=== PATIENT | female | born 1935 | race Caucasian/White ===

== ENCOUNTER → 2017-01-10 10:00 | Outpatient (CLI) | payer MEDICARE, OTHER ==
[2016-06-12 11:30] VITALS: BMI 27.5
[~2017-01-10 10:00] MED LIST: ALTOPREV40 MG PO; COREG6.25 MG PO; HYDROCODONE-APA1 TAB PO; KLONOPIN0.5 MG PO; LINZESS290 MCG PO; NEXIUM40 MG PO; SYNTHROID88 MCG PO; WELLBUTRIN XL150 M1 PO
== END | disposition home or self-care (01) ==
LOC: D.MRI 01-08 11:30
DX: M25.562 Pain in left knee (principal)

== ENCOUNTER → 2017-10-02 09:50 | Outpatient (CLI) | payer MEDICARE, OTHER ==
[2016-06-12 11:30] VITALS: BMI 27.5
[~2017-10-02 09:50] MED LIST changes: +DILT-XR240 MG PO; +EVISTA60 MG PO; +LIPITOR10 MG PO; +OMEPRAZOLE40 MG PO
== END | disposition home or self-care (01) ==
LOC: D.US 09:50
DX: R10.13 Epigastric pain (principal)

== ENCOUNTER → 2017-10-09 12:30 | Outpatient (CLI) | payer MEDICARE, OTHER ==
[2016-06-12 11:30] VITALS: BMI 27.5
== END | disposition home or self-care (01) ==
LOC: D.RAD 12:30
DX: R13.10 Dysphagia, unspecified (principal)

== ENCOUNTER 2017-11-05 06:08 | Day surgery (SDC) | payer MEDICARE, OTHER ==
[~2017-11-05] VITALS: Ht 167.6 cm; Wt 76.2 kg
--- NOTE | ~2017-11-05 | OP ---
PATIENT NAME: STEPHANIE MALAVE MEDICAL RECORD: [id number] :37 LOCATION:D.OPS ADMISSION DATE: SURGEON: OSIEL ORELLANA MD DATE OF OPERATION: 11/05/2017 PREOPERATIVE DIAGNOSES: 1. Gallstones. 2. Hypertension. 3. Hypercholesterolemia. 4. Thyroid disease. POSTOPERATIVE DIAGNOSES: 1. Hypercholesterolemia. 2. Thyroid disease. PROCEDURE: Laparoscopic cholecystectomy. SURGEON: Osiel Orellana MD REPORT OF PROCEDURE: The patient's abdomen was prepped and draped in sterile fashion. A cutdown was made on the superior aspect of the umbilicus. Vicryls #0 were placed in the fascia bilaterally and the fascia was incised with #15 blade. I then bluntly entered the peritoneal cavity and placed a 12-mm Carmen port. Under direct visualization, a 5-mm trocar was placed in the epigastrium and two more 5-mm trocars were placed in the right subcostal region. The gallbladder was elevated and there was no sign of any inflammatory changes. The patient had multiple small stones visible inside the gallbladder, especially around the neck and the infundibulum. These were all milked back into the gallbladder fossa. The cystic duct was clipped proximally and distally, and ligated in standard fashion. The cystic artery was found, clipped proximally and distally, and ligated. The gallbladder was then taken off the liver bed using electrocautery and placed in the right upper quadrant. Any bleeding from the liver bed was then treated with electrocautery. We irrigated out the right upper quadrant and assured there was no further bleeding and no sign of any bile leakage. At this point, the ports and insufflation were then removed and the gallbladder was taken out through the umbilicus. The umbilical fascia was closed with interrupted #0 Vicryls times 3. The wounds were irrigated out with normal saline and infused with 10 mL of 0.25% Marcaine with epinephrine. The skin incisions were all closed with subcutaneous 5-0 Monocryl and dressed appropriately. COMPLICATIONS: None. CONDITION: Stable. ANESTHESIA: General endotracheal and local. BLOOD LOSS: Minimal. TRANSINT:[id number] Voice Confirmation ID: [id number] DOCUMENT ID: [id number] OPERATIVE REPORT [id number] ANANDASTEPHANIE Greyson OSIEL ORELLANA MD CC: DAVID BURT MD [id number] DICTATION DATE: 11/05/17 1004 TAX ADJUSTER: 11/05/17 1327 [facility] [address] [place], [facility]
[2017-11-05 06:53] LABS: HEMATOCRIT 42.8 % (36.0-48.0); HEMOGLOBIN 14.7 g/dL (12-16); MCH 30.5 pg (26.0-34.0); MCHC 34.3 g/dL (31.0-37.0); MCV 88.8 fL (80.0-100.0); MEAN PLATELET VOLUME 9.9 fL (7.4-10.4); PLATELET COUNT 255 10x3/uL (130-400); RBC 4.82 10x6/uL (4.00-5.40); RDW 13.4 % (11.5-14.5); WBC 10.6 10x3/uL (4.8-10.8)
[2017-11-05 07:25] LABS: BASOPHILS 1 % (0-2); EOSINOPHILS 3 % (0-7); LYMPHOCYTES 55 % (15-50); MONOCYTES 7 % (2-11); NEUTROPHILS 34 % (40-80)
[2017-11-05 07:26] LABS: POIKILOCYTOSIS OCC; SCHISTOCYTES OCC; TEAR DROP CELLS OCC
[2017-11-05 07:27] LABS: ANISOCYTOSIS OCC; PLATELET ESTIMATE NORMAL; ROULEAUX OCC
[2017-11-05] MEDS ORDERED: OMEPRAZOLE40 MG PO (08:25)
[2017-11-05 08:28] LABS: ANION GAP 17.1 mmol/L (8-16); CALCIUM 8.8 mg/dL (8.5-10.1); CARBON DIOXIDE 25.6 mmol/L (21.0-32.0); CREATININE - SERUM 1.1 mg/dL (0.6-1.3); POTASSIUM - SERUM 3.7 mmol/L (3.5-5.1)
[2017-11-05 08:33] VITALS: BP 132/74; Ht 167.6 cm; Wt 76.2 kg
[2017-11-05] MEDS ORDERED: HYDROCODONE-APA1 TAB PO (09:59)
== END 2017-11-05 13:35 | disposition home or self-care (01) ==
LOC: D.OPS 06:08 → D.PAN 09:00 → D.OPS 09:00
PROVIDERS: Anesthesiology
DX: K80.10 Calculus of gallbladder with chronic cholecystitis without obstruction (principal); I10 Essential (primary) hypertension; E78.00 Pure hypercholesterolemia, unspecified; E07.9 Disorder of thyroid, unspecified; Z01.812 Encounter for preprocedural laboratory examination

== ENCOUNTER → 2017-11-23 09:29 | Outpatient (CLI) | payer MEDICARE, OTHER ==
[2017-11-05 08:33] VITALS: BMI 27.1
--- NOTE | ~2017-11-23 | HEMODYNAMI ---
PATIENT:STEPHANIE MALAVE MEDICAL RECORD: [id number] : 37 LOCATION:[facility] ADMISSION DATE: 11/23/17 Generatedon:11/23/201713:13 Patient name: STEPHANIE MALAVE Patient #: [id number] SSN: D OB: 1935 Date of study: 11/23/2017 Page: Of Hemodynamic Procedure Report Patient Data Patient Demographics Procedure consent was obtained First Name: STEPHANIE Gender: Female Last Name: ANANDA : 1935 [facility] Initial: L Age: 82 year(s) Patient #: [id number] Race: Unknown Additional ID: [id number] Contact details [address]: [address] [place] [address] State: [place] City: [place] Zip code: [address] Past Medical History Allergies Allergen Reaction Date Comments Reported Other allergy 11/23/2017 Tetanus Admission Admission Data Admission Date: 11/23/2017 Admission Time: 9:29 Lab Results Lab Result Date: 11/23/2017 Lab Result Time: 10:00 Biochemistry Name Units Result Min Max BUN mg/dl 17 --(---*)-- 7 18 Creatinine mg/dl 1.1 --(--*-)-- 0.6 1.3 CBC Name Units Result Min Max Hematocrit % 41.4 -*(----)-- 42 54 Hemoglobin g/dl 14.1 --(*---)-- 13.5 17.5 Procedure Procedure Types Cath Procedure Diagnostic Procedure LHC LH w/Coronaries PCI Procedure Coronary Stent Coronary Stent Initial Procedure Description Procedure Date Procedure Date: 11/23/2017 Procedure Start Time: 13:01 Procedure End Time: 13:12 Procedure Staff Name Function Woody Mckeon MD Performing Physician Lane Collier RT Monitor Jayleen Azar RT Scrub Eber Lynn RN Nurse Procedure Data Cath Procedure Fluoroscopy Diagnostic fluoroscopy Total fluoroscopy Time: 4.2 time: 4.2 min min Diagnostic fluoroscopy Total fluoroscopy dose: 406 dose: 406 mGy mGy Contrast Material Contrast Material Type Amount (ml) Isovue 300 72 Entry Location Entry Primary Successful Side Size Upsize Upsize Entry Closure De Jesus ccessful Closure Location (Fr) 1 (Fr) 2 (Fr) Remarks Device Remarks Radial Right 6 Fr Mechanical artery Short Compression Estimated blood loss: 10 ml Diagnostic catheters Device Type Used For End Catheter Placement DIAGNOSTIC [place] 110cm 5 Procedure Fr catheter ([id number]) Procedure Complications No complications Procedure Medications Medication Administration Route Dosage 0.9% NaCl I.V. 100 ml/hr Oxygen NC 2 l/min Heparin Flush Bag added to field 2 bags (1000units/500ml NS) Lidocaine 2% added to field 20 Radial Cocktail added to field ml (Verapomil 2mg/Nitro 400mcg/Heparin 1500units) Versed 2 mg Fentanyl I.V. 100 mcg Radial Cocktail I.A. ml (Verapomil 2mg/Nitro 400mcg/Heparin 1500units) Heparin Bolus I.V. 4000 units Hemodynamics Rest HGB: 14.1 (g/dl) Heart Rate: 89 (bpm) Snapshots Pre Cath Intra NCS Post Cath Vital Signs Time Heart Resp SPO2 etCO2 NIBP (mmHg) Rhythm Pain Sedation Rate (ipm) (%) (mmHg) Status Level (bpm) 12:51:22 81 18 95 0 168/73(105) NSR 0 (11) 10(A) , No pain 12:56:06 87 15 93 0 162/75(117) NSR 0 (11) 10(A) , No pain 13:00:49 93 14 94 0 153/73(118) NSR 0 (11) 10(A) , No pain 13:05:34 106 13 89 0 146/73(105) NSR 0 (11) 10(A) , No pain 13:10:18 101 17 90 0 138/72(96) NSR 0 (11) 10(A) , No pain Medications Time Medication Route Dose Verified Delivered Reason Notes Effectiveness by by 12:50:33 0.9% NaCl I.V. 100 Eber Eber Per physician ml/hr Leah Lynn RN RN 12:50:44 Oxygen NC 2 Eber Eber Per physician l/min Leah Lynn RN RN 12:50:56 Heparin Flush added 2 Eber Eber used for Bag to bags Leah Lynn procedure (1000units/500ml field RN RN NS) 12:51:09 Lidocaine 2% added 20ml Eber Eber for local to vial Leah Lynn anesthetic RN RN 12:51:28 Radial Cocktail added ml Eber Eber used for (Verapomil to Lorigan Leah procedure 2mg/Nitro RN RN 400mcg/Heparin 1500units) 12:59:21 Versed 2 mg Eber Eber for sedation Leah Lynn RN RN 12:59:33 Fentanyl I.V. 100 Eber Eber for sedation mcg Leah Lynn RN RN 13:01:36 Radial Cocktail I.A. ml Eber Woody for (Verapomil Leah Tauth MD vasodilation 2mg/Nitro RN 400mcg/Heparin 1500units) 13:06:06 Heparin Bolus I.V. 4000 Eber Eber for units Leah Lynn anticoagulation RN under ground miner Log Time Note 12:35:21 Jayleen Counts RT(R) sent for patient. Start room use. 12:35:22 Time tracking: Regular hours 12:35:27 Plan of Care:Hemodynamics will remain stable., Cardiac rhythm will remain stable., Comfort level will be maintained., Respiratory function will remain adequate., Patient/ family verbilizes understanding of procedure., Procedure tolerated without complication., Recovers from procedure without complications.. 12:44:45 Patient received from ED to CCL 1 Alert and oriented. Tansferred to table in Supine position. 12:44:49 Warm blankets applied, and mackenzie hugger turned on for patient comfort. 12:44:49 Correct patient and procedure confirmed by team. 12:44:51 Signed procedure consent form obtained from patient. 12:44:52 ECG and BP/O2 sat monitors applied to patient. 12:44:57 H&P Date Dictated: 11/23/2017 New H&P dictated by physician.. 12:44:59 Pre-procedure instructions explained to patient. 12:44:59 Pre-op teaching completed and patient verbalized understanding. 12:45:01 Family in waiting room. 12:45:03 Patient NPO since Midnight. 12:45:21 Patient allergic to Other allergyTetanus 12:45:23 Is the patient allergic to Iodine/contrast media? No. 12:50:19 Is patient on blood thinner?Yes 12:50:22 ACC The patient was administered the following blood thiners within the last 24 hours: ACCPlavix 12:50:24 Vital chart was started 12:50:33 0.9% NaCl 100 ml/hr I.V. was administered by Eber Lynn RN; Per physician; 12:50:44 Oxygen 2 l/min NC was administered by Eber Lynn RN; Per physician; 12:50:56 Heparin Flush Bag (1000units/500ml NS) 2 bags added to field was administered by Eber Lynn RN; used for procedure; 12:51:09 Lidocaine 2% 20ml vial added to field was administered by Eber Lynn RN; for local anesthetic; 12:51:28 Radial Cocktail (Verapomil 2mg/Nitro 400mcg/Heparin 1500units) ml added to field was administered by Eber Lynn RN; used for procedure; 12:55:51 Baseline sample Acquired. 12:55:55 Rhythm: sinus rhythm 12:55:57 Full Disclosure recording started 12:56:02 Patient diabetic? No. 12:56:07 Previous problem with sedation/anesthesia? No ? 12:56:08 Snore? Yes 12:56:09 Sleep apnea? No 12:56:10 Deviated septum? No 12:56:11 Opens mouth fully? Yes 12:56:12 Sticks out tongue? Yes 12:56:14 Airway obstruction? No ? 12:56:17 Dentures? Yes out 12:56:22 Modified Tariq's test Ulnar < 7 seconds 12:56:24 Patient pain scale 0/10 ?. 12:56:29 IV patent on arrival in right antecubital with 0.9% NaCl at [facility]. 12:57:34 Lab Result : BUN 17 mg/dl 12:57:34 Lab Result : Creatinine 1.1 mg/dl 12:57:34 Lab Result : Hemoglobin 14.1 g/dl 12:57:34 Lab Result : Hematocrit 41.4 % 12:57:37 Lab results completed and on chart. 12:57:40 Right Radial & Right Groin area was prepped with chlora-prep and draped in sterile fashion 12:57:46 Alarms reviewed by R. N. 12:57:46 Sharps counted by scrub and verified by R.N. 12:57:49 Use device set Radial Dx or PCI 12:57:51 ACIST Syringe (37211) opened to sterile field. 12:57:52 Medline Cath Pack ([id number]) opened to sterile field. 12:57:53 ACIST Hand Control (58298) opened to sterile field. 12:57:53 ACIST Manifold (67942) opened to sterile field. 12:57:54 Tegaderm 4 x 4 (1626W) opened to sterile field. 12:57:54 MBrace Wrist Support ([id number]) opened to sterile field. 12:57:56 Bag Decanter (2002S) opened to sterile field. 12:57:57 DIAGNOSTIC WIRE .035 260cm J wire (748144) opened to sterile field. 12:57:58 SHEATH 6FR Slender ([id number]) opened to sterile field. 12:58:07 Physician arrived 12:58:07 --------ALL STOP TIME OUT------ 12:58:08 Final Timeout: patient, procedure, and site verified with staff and physician. All members of the team are in agreement. 12:58:09 Right Radial & Right Groin site verified by team. 12:58:11 Physical assessment completed. ASA score P 2 - A patient with mild systemic disease as per Woody Mckeon MD. 12:58:14 Sedation plan: IV Moderate Sedation Medication:Versed, Fentanyl 12:59:21 Versed 2 mg was administered by Eber Lynn RN; for sedation; 12:59:33 Fentanyl 100 mcg I.V. was administered by Eber Lynn RN; for sedation; 13:01:20 Procedure started. 13:01:24 Local anesthetic to right radial artery with Lidocaine 2% by Woody Mckeon MD.INITIAL ACCESS ONLY 13:01:30 A 6 Fr Short sheath was inserted into the Right Radial artery 13:01:36 Radial Cocktail (Verapomil 2mg/Nitro 400mcg/Heparin 1500units) ml I.A. was administered by Woody Mckeon MD; for vasodilation; 13:01:41 A DIAGNOSTIC [place] 110cm 5 Fr catheter (232392) was advanced over the wire and used for Procedure. 13:01:59 Zero performed for pressure channel P1 13:02:27 LV gram done using MORRIS 13:02:30 Injector settings: Ml/sec: 5, Volume: 15, 13:02:34 EF : 60 % 13:03:18 LCA angiography performed. 13:04:24 RCA angiography performed. 13:04:43 INFLATOR Merit BasixCompak (TH8173) opened to sterile field. 13:04:50 GUIDE 6FR XBLAD 3.5 catheter ([id number]) opened to sterile field. 13:05:03 Catheter removed. 13:06:05 CHOICE PT Extra Support 182cm wire ([id number]) opened to sterile field. 13:06:06 Heparin Bolus 4000 units I.V. was administered by Eber Lynn RN; for anticoagulation; 13:06:12 6 Fr xblad guide catheter was inserted over the wire 13:06:20 whisper wire advanced. 13:08:26 Wire advanced across lesion. 13:09:32 Inflation Number: 1 A INTEGRITY RX 2.25 x 12 stent ([id number]) was prepped and advanced across the 1st Diag. The stent was deployed at 11 VIVIAN for 0:10 (min:sec). 13:09:41 Stent catheter was removed intact over wire. 13:09:42 Wire removed. 13:09:42 Guide catheter removed. 13:09:53 TR BAND Standard ([id number]) opened to sterile field. 13:10:08 Sheath removed intact; hemostasis achieved with Mechanical Compression to the Right Radial artery. 13:10:09 Procedure ended.(Physican Out) 13:10:35 Fluoroscopy time 04.20 minutes. 13:10:39 Fluoroscopy dose: 406 mGy 13:10:39 Flurop Dose total: 406 13:10:42 Contrast amount:Isovue 300 72ml. 13:10:44 Sharps counted by scrub and verified by R.N. 13:11:02 TR band inflated with 12cc of air. 13:11:04 Insertion/operative site no bleeding no hematoma. 13:11:11 Post right radial artery:stable, soft, clean and dry 13:11:15 Post Procedure Pulses reassessed and unchanged 13:11:19 Post-procedure physical assessment completed. ASA score P 2 - A patient with mild systemic disease as per Woody Mckeon MD. 13:11:22 Post procedure rhythm: unchanged. 13:11:24 Estimated blood loss: 10 ml 13:11:25 Post procedure instruction explained to patient.Patient verbalizes understanding. 13:11:25 Patient needs reinforcement of post procedure teaching. 13:11:36 Procedure type changed to Cath procedure, Diagnostic procedure, LHC, LHC w/Coronaries, PCI procedure, Coronary Stent, Coronary Stent Initial 13:12:26 Procedure and supply charges have been captured, reviewed, submitted and are correct. 13:12:29 Procedure Complication : No complications 13:12:32 Vital chart was stopped 13:12:33 See physician's report for complete and final results. 13:12:37 Report given to Pre/Post Procedure Room. 13:12:39 Patient transfered to Pre/Post Procedure Room with Stretcher. 13:12:42 Procedure ended. 13:12:42 Full Disclosure recording stopped 13:12:45 End room use (Document Last) Intervention Summary Intervention Notes Time ActionType Lesion and Equipment Action# Pressure Duration Attributes Used 13:09:32 Place stent 1st Diag INTEGRITY RX 1 11 00:10 2.25 x 12 stent ([id number]) Device Usage Item Name Manufacture Quantity Catalog Number Hospital Part Current Mini mal Lot# / Charge Number Stock Stock Serial# Code ACIST Acist 1 29734 885521 169616 521372 20 Syringe Medical (47225) Systems Inc Medline Cath Cardinal 1 [id number] 294056 62977 557309 5 Pack Health ([id number]) ACIST Hand Acist 1 16851 680851 994206 003387 5 Control Medical (81140) Systems Inc ACIST Acist 1 45551 043632 868988 537558 5 Manifold Medical (85034) Systems Inc Tegaderm 4 x 3M 1 1626W 103570 296197 587429 5 4 (1626W) MBrace Wrist Advanced 1 140-0250-00 366212 42100 530887 5 Support Vascular ([id number]) Dynamics Bag Decanter Microtek 1 2001S 497247 78249 166770 5 (2001S) Medical Inc. DIAGNOSTIC [facility] [place] 1 176240 059733 189263 980016 30 WIRE .035 260cm J wire (637143) SHEATH 6FR Terumo 1 [id number] 839794 095869 341260 40 Slender ([id number]) DIAGNOSTIC Terumo 1 40-8649 639266 058800 647491 5 [place] 110cm 5 Fr catheter (000541) INFLATOR Merit 1 [id number] 098499 542935 953329 15 [facility] Medical BasixCompak (DF5741) GUIDE 6FR Cardinal 1 [id number] 375033 449246 976776 10 XBLAD 3.5 Health catheter ([id number]) CHOICE PT [place] 1 [id number] 020183 851014 966976 5 Extra Scientific Support 182cm wire ([id number]) INTEGRITY RX Medtronic 1 [id number] 321460 190879 268077 5 [id number] 2.25 x 12 stent ([id number]) TR BAND Terumo 1 [id number] 762339 803432 008698 40 Standard ([id number]) Signature Audit [place] Stage Time Signature Unsigned Intra-Procedure 11/23/2017 Lane Collier 1:13:51 PM RT(R) Signatures Monitor : Lane Collier RT Signature : Date : Time : [place] [address] [place] [address]
--- NOTE | ~2017-11-23 | CN ---
PATIENT NAME:STEPHANIE ROTHMAN MEDICAL RECORD: [id number] : 37 LOCATION:D.CAT ADMIT DATE: ACCOUNT: [id number] CONSULTING PHYSICIAN: CHAY DELCID MD REFERRING PHYSICIAN: SHOLA CARRERA MD DATE OF CONSULTATION: 11/23/2017 ADMITTING DIAGNOSES: 1. Chest pain compatible with angina. 2. Hyperlipidemia. 3. Hypertension. HISTORY OF PRESENT ILLNESS: Mrs. Rothman has risk factors of hypertension, hyperlipidemia, family history of coronary artery disease. She has not had a history of ischemic heart disease. She had crushing chest pain of new onset this morning like a band-like sensation around her chest. It has waxed and waned. She has been improved with nitro, but it is coming back. Her EKG is with no acute ST-T abnormalities. PHYSICAL EXAMINATION: GENERAL APPEARANCE: Well-nourished, well-developed, appears stated age. Level of distress, comfortable. PSYCHIATRIC: Mental status, alert, normal affect. Orientation, oriented to time, place and person. EYES: Lids and conjunctiva, noninjected. No discharge, no pallor. ENT: Lips, teeth, gums, normal dentition. Oropharynx, no cyanosis, no pallor. NECK: Carotid arteries, bilateral normal upstroke, no bruits, no thrills. JUGULAR VEINS: No jugular venous pressure or distention. CERVICAL LYMPH NODES: Nontender, nonenlarged. THYROID: Not enlarged. Nontender. No nodules. LUNGS: Respiratory effort, unlabored. CHEST: Normal curvature. No thoracic deformity. No chest wall tenderness. Percussion, resonant. Auscultation, clear. No wheezes, no rales, no rhonchi. CARDIOVASCULAR: Precordial exam, nondisplaced. No heaves or pericardial thrills. Rate and rhythm, regular. Heart sounds, normal S1, normal S2. No S3, no gallop, no rub. Systolic murmur, not heard. Diastolic murmur, not heard. EXTREMITIES: No cyanosis, no edema. Peripheral pulses, full and equal in all extremities, except as noted. No bruits appreciated. ABDOMEN: Soft, nondistended. Normal aorta. No bruit. Nontender. No masses. Liver, nontender, no hepatomegaly. Spleen, nontender, no splenomegaly. MUSCULOSKELETAL: No joint tenderness. No joint swelling. No erythema. NEUROLOGICAL: Normal gait, normal strength, normal tone. SKIN: Warm and dry. REVIEW OF SYSTEMS: The patient reports easy bruising but reports no swollen glands. The patient reports no fever, no night sweats, no significant weight gain, no significant weight loss. No significant exercise tolerance. The patient reports no dry eyes, no irritation, no vision change. Patient reports no difficulty hearing and no ear pain. Patient reports no frequent nose bleeds or nose and sinus problems. Patient reports on arm pain on exertion. No shortness of breath while lying down. No history of heart murmur. Patient reports no cough, no wheezing or coughing up blood. Patient reports no abdominal pain, no vomiting. Normal appetite. No diarrhea and not vomiting blood. No nausea and no constipation. Patient reports no incontinence. No difficulty urinating. No hematuria. No increased frequency. Patient reports CONSULT REPORT [id number] CHRISTENJAVIERSTEPHANIE Rubi no muscle aches. No weakness, no arthralgias, no back pain. No swelling of the extremities. Patient reports no abnormal mole, no jaundice, no rashes. Reports no loss of consciousness. No weakness and no numbness. No seizures, dizziness, or headaches. The patient reports no depression, no sleep disturbance, feeling safe in a relationship and no alcohol abuse. Patient reports on fatigue. Reports no runny nose or sinus pressure. No itching, no hives, and no frequent sneezing. OVERALL IMPRESSION: Acute onset of chest pain compatible with angina, most likely she has hemodynamically significant coronary artery disease causing this. We will proceed with coronary angiography. Further care depends upon findings of the angiography. TRANSINT:[id number] Voice Confirmation ID: [id number] DOCUMENT ID: [id number] CHAY DELCID MD at 1148 CC: [id number] DICTATION DATE: 11/23/17 1047 BANANA RIPENING ROOM SUPERVISOR: 11/23/17 1130 DEP CLI 11/23/17 [place] [id number]
--- NOTE | ~2017-11-23 | OP ---
PATIENT NAME: STEPHANIE MALAVE MEDICAL RECORD: [id number] :37 LOCATION:D.CAT ADMISSION DATE: SURGEON: CHAY DELCID MD DATE OF OPERATION: 11/23/2017 PROCEDURES: 1. PTCA and stent left anterior descending diagonal. 2. Left heart catheterization. 3. Selective coronary angiography. 4. Left ventriculogram. INDICATION: Angina and coronary artery disease. PROCEDURE IN DETAIL: After informed consent was obtained and after detailed explanation of risks, benefits as well as alternative therapies, the patient elected to proceed with angiogram and angioplasty. The right radial area was prepped and draped in normal sterile fashion. The right radial artery was cannulated via modified Seldinger technique with placement of 6-Mongolian sheath. All catheters exchanged through this sheath. FINDINGS: The left ventriculogram was performed in standard 30-degree MORRIS view, reveals good cardiac wall motion throughout all segments. Overall ejection fraction estimated at 60%. SELECTIVE CORONARY ANGIOGRAPHY: 1. Left main showed no significant angiographic disease. 2. Left anterior descending has a diagonal with 95% stenosis. Otherwise, the LAD has mild irregularities, but no flow-limiting stenosis. 3. The left circumflex shows mild irregularities, but no flow-limiting stenosis. 4. Right coronary has gyxa-ll-vyxhrvro irregularities. PTCA AND STENT OF THE LEFT ANTERIOR DESCENDING DIAGONAL: Stent used is a 2.25 x 12 mm Integrity. Result was 0% residual stenosis. OVERALL IMPRESSION: Successful PTCA and stent of the LAD diagonal going from 95% initial stenosis to 0% residual. TRANSINT:[id number] Voice Confirmation ID: [id number] DOCUMENT ID: [id number] CHAY DECLID MD at 1153 CC: [id number] DICTATION DATE: 12/08/17 1025 CLAIM REP: 12/08/17 1133 DEP CLI 11/23/17 [place] [id number]
[~2017-11-23 09:29] MED LIST changes: +BAYER CHEWABLE81 MG PO; +PLAVIX75 MG PO
[2017-11-23 10:15] LABS: BASOPHILS 0.1 % (0-2); EOSINOPHILS 2.8 % (0-7); HEMATOCRIT 41.4 % (36.0-48.0); HEMOGLOBIN 14.1 g/dL (12-16); IMMATURE GRANULOCYTES 0.2 % (0-5); LYMPHOCYTES 26.3 % (15-50); MCH 30.1 pg (26.0-34.0); MCHC 34.1 g/dL (31.0-37.0); MCV 88.3 fL (80.0-100.0); MEAN PLATELET VOLUME 10.5 fL (7.4-10.4); MONOCYTES 5.7 % (2-11); NEUTROPHILS 64.9 % (40-80); PLATELET COUNT 258 10x3/uL (130-400); RBC 4.69 10x6/uL (4.00-5.40); RDW 12.9 % (11.5-14.5); WBC 13.6 10x3/uL (4.8-10.8)
[2017-11-23 10:19] LABS: ALBUMIN 3.7 g/dL (3.4-5.0); ALKALINE PHOSPHATASE 87 U/L (46-116); ALT (SGPT) 30 U/L (10-68); BILIRUBIN - TOTAL 0.28 mg/dL (0.2-1.3); CALC OSMOLALITY 281 mosm/kg (275-300); CALCIUM 8.7 mg/dL (8.5-10.1); CARBON DIOXIDE 25.2 mmol/L (21.0-32.0); CHLORIDE - SERUM 105 mmol/L (98-107); CREATININE - SERUM 1.1 mg/dL (0.6-1.3); GLUCOSE 135 mg/dL (74-106); POTASSIUM - SERUM 3.9 mmol/L (3.5-5.1); SODIUM 139 mmol/L (136-145); UREA NITROGEN 17 mg/dL (7-18); eGFR NON AFRICAN AMERICAN 50 mL/min (90-120)
[2017-11-23 10:30] LABS: CREATINE KINASE 42 UL (21-215); LIPASE 161 U/L (73-393); PRO BNP 36 pg/mL (0-450)
[2017-11-23 10:36] LABS: TROPONIN-I < 0.017 ng/mL (0.000-0.060)
== END | disposition home or self-care (01) ==
LOC: D.ER 09:29 → D.CATH 09:29 → EDSTATUS 12:00
PROVIDERS: Family Medicine
DX: I25.119 Atherosclerotic heart disease of native coronary artery with unspecified angina pectoris (principal); E78.5 Hyperlipidemia, unspecified; I10 Essential (primary) hypertension; Z01.812 Encounter for preprocedural laboratory examination

== ENCOUNTER 2018-10-06 10:33 | Emergency (ER) | payer MEDICARE, OTHER ==
[~2018-10-06] VITALS: Ht 165.1 cm; Wt 67.7 kg
[2018-10-06 10:36] VITALS: Ht 165.1 cm; Wt 67.7 kg
[2018-10-06 12:10] LABS: BASOPHILS 0.2 % (0-2); HEMOGLOBIN 15.5 g/dL (12-16); IMMATURE GRANULOCYTES 0.1 % (0-5); LYMPHOCYTES 34.2 % (15-50); MCHC 34.4 g/dL (31.0-37.0); MCV 87.2 fL (80.0-100.0); MEAN PLATELET VOLUME 10.8 fL (7.4-10.4); NEUTROPHILS 58.5 % (40-80); PLATELET COUNT 245 10x3/uL (130-400); RBC 5.16 10x6/uL (4.00-5.40); RDW 13.6 % (11.5-14.5); WBC 9.4 10x3/uL (4.8-10.8)
[2018-10-06 12:15] LABS: ALBUMIN 3.9 g/dL (3.4-5.0); ALKALINE PHOSPHATASE 98 U/L (46-116); ALT (SGPT) 22 U/L (10-68); BILIRUBIN - TOTAL 0.52 mg/dL (0.2-1.3); CALC OSMOLALITY 273 mosm/kg (275-300); CALCIUM 9.3 mg/dL (8.5-10.1); CARBON DIOXIDE 25.2 mmol/L (21.0-32.0); CHLORIDE - SERUM 102 mmol/L (98-107); CREATININE - SERUM 0.9 mg/dL (0.6-1.3); GLUCOSE 102 mg/dL (74-106); PROTEIN - SERUM 8.1 g/dL (6.4-8.2); SODIUM 137 mmol/L (136-145); UREA NITROGEN 13 mg/dL (7-18); eGFR NON AFRICAN AMERICAN 63 mL/min (90-120)
[2018-10-06 12:17] LABS: INR 0.95 (0.85-1.17); PROTIME 12.2 SECONDS (11.6-15.0)
[2018-10-06 12:18] LABS: POTASSIUM - SERUM 4.3 mmol/L (3.5-5.1)
[2018-10-06 12:26] LABS: AMYLASE - SERUM 42 U/L (25-115); LIPASE 150 U/L (73-393); PRO BNP 95 pg/mL (0-450); TROPONIN-I < 0.017 ng/mL (0.000-0.060)
[2018-10-06 16:32] LABS: APPEARANCE CLEAR (CLEAR); BILIRUBIN NEGATIVE (NEGATIVE); COLOR YELLOW (YELLOW); GLUCOSE NEGATIVE (NEGATIVE); KETONE NEGATIVE (NEGATIVE); NITRITE NEGATIVE (NEGATIVE); PROTEIN NEGATIVE (NEGATIVE); UROBILINOGEN NORMAL (NORMAL)
[2018-10-06 16:33] LABS: BACTERIA MODERATE /hpf (NONE SEEN); RED CELLS - URINE 0-5 /hpf (0-5); WHITE CELLS - URINE 0-5 /hpf (0-5)
[2018-10-06] MEDS ORDERED: MACROBID100 MG PO (16:44)
[2018-10-06] MEDS ORDERED: ZOFRAN4 MG PO (16:44)
[2018-10-06 17:10] VITALS: BP 124/87
== END 2018-10-06 17:11 | disposition home or self-care (01) ==
LOC: D.ER 10:33
PROVIDERS: Family Medicine
DX: K59.00 Constipation, unspecified (principal); K21.9 Gastro-esophageal reflux disease without esophagitis; R11.0 Nausea; N39.0 Urinary tract infection, site not specified

== ENCOUNTER 2018-10-10 09:15 | Emergency (ER) | payer MEDICARE, OTHER ==
[~2018-10-10] VITALS: Ht 165.1 cm; Wt 67.5 kg
[~2018-10-10 09:15] MED LIST changes: +MACROBID100 MG PO; +ZOFRAN4 MG PO
[2018-10-10 09:37] VITALS: Ht 165.1 cm; Wt 67.5 kg
[2018-10-10 10:29] LABS: APPEARANCE HAZY (CLEAR); BILIRUBIN NEGATIVE (NEGATIVE); COLOR DK YELLOW (YELLOW); GLUCOSE NEGATIVE (NEGATIVE); KETONE LARGE mg/dL (NEGATIVE); NITRITE NEGATIVE (NEGATIVE); PROTEIN TRACE mg/dL (NEGATIVE); SPECIFIC GRAVITY 1.025 (1.005-1.020); UROBILINOGEN NORMAL (NORMAL)
[2018-10-10 10:31] LABS: BACTERIA MODERATE /hpf (NONE SEEN); EPITHELIAL CELLS 0-5 /hpf (0-5); MUCUS >1+ /lpf (NONE SEEN); RED CELLS - URINE 0-5 /hpf (0-5); WHITE CELLS - URINE 0-5 /hpf (0-5)
[2018-10-10 10:37] LABS: BASOPHILS 0.4 % (0-2); EOSINOPHILS 0.4 % (0-7); HEMATOCRIT 43.1 % (36.0-48.0); HEMOGLOBIN 14.6 g/dL (12-16); IMMATURE GRANULOCYTES 0.3 % (0-5); LYMPHOCYTES 36.7 % (15-50); MCH 29.3 pg (26.0-34.0); MCHC 33.9 g/dL (31.0-37.0); MCV 86.5 fL (80.0-100.0); MEAN PLATELET VOLUME 10.3 fL (7.4-10.4); MONOCYTES 6.2 % (2-11); PLATELET COUNT 227 10x3/uL (130-400); RBC 4.98 10x6/uL (4.00-5.40); RDW 13.4 % (11.5-14.5); WBC 7.7 10x3/uL (4.8-10.8)
[2018-10-10 10:56] LABS: ALBUMIN 3.8 g/dL (3.4-5.0); ANION GAP 17.9 mmol/L (8-16); BILIRUBIN - TOTAL 0.5 mg/dL (0.2-1.3); CALCIUM 8.7 mg/dL (8.5-10.1); CARBON DIOXIDE 20.8 mmol/L (21.0-32.0); POTASSIUM - SERUM 3.7 mmol/L (3.5-5.1); PROTEIN - SERUM 7.5 g/dL (6.4-8.2)
[2018-10-10 11:10] LABS: AMYLASE - SERUM 39 U/L (25-115); LIPASE 156 U/L (73-393)
[2018-10-10] MEDS ORDERED: CARAFATE1 G PO (14:09)
[2018-10-10] MEDS ORDERED: PHENERGAN25 MG RC (14:09)
[2018-10-10 14:19] VITALS: BP 138/97
== END 2018-10-10 14:20 | disposition home or self-care (01) ==
LOC: D.ER 09:15
PROVIDERS: Family Medicine
DX: R11.10 Vomiting, unspecified (principal); K21.9 Gastro-esophageal reflux disease without esophagitis; N39.0 Urinary tract infection, site not specified; R33.9 Retention of urine, unspecified

== ENCOUNTER → 2018-11-03 10:37 | Outpatient (CLI) | payer MEDICARE, OTHER ==
[2018-10-10 09:37] VITALS: BMI 24.7
[~2018-11-03 10:37] MED LIST changes: +CARAFATE1 G PO; +PHENERGAN25 MG RC
[2018-11-03 14:11] LABS: AMYLASE - SERUM 36 U/L (25-115); LIPASE 168 U/L (73-393)
== END | disposition home or self-care (01) ==
LOC: D.NM 10:37 → D.MRI 11-09 10:00
PROVIDERS: Internal Medicine Gastroenterology
DX: R10.9 Unspecified abdominal pain (principal); R11.2 Nausea with vomiting, unspecified; K85.90 Acute pancreatitis without necrosis or infection, unspecified

== ENCOUNTER → 2018-11-09 08:27 | Outpatient (CLI) | payer MEDICARE, OTHER ==
[2018-10-10 09:37] VITALS: BMI 24.7
== END | disposition home or self-care (01) ==
LOC: D.MRI 08:27
DX: R10.9 Unspecified abdominal pain (principal); R11.2 Nausea with vomiting, unspecified; K85.90 Acute pancreatitis without necrosis or infection, unspecified

== ENCOUNTER 2019-10-20 07:46 | Inpatient (IN) | payer MEDICARE, OTHER ==
[~2019-10-20] VITALS: Ht 162.6 cm; Wt 65.0 kg
[2019-10-20] MEDS ORDERED: OMEPRAZOLE40 MG PO (08:00)
[2019-10-20 08:31] LABS: BASOPHILS 0.3 % (0-2); EOSINOPHILS 0.7 % (0-7); HEMATOCRIT 41.3 % (36.0-48.0); HEMOGLOBIN 13.7 g/dL (12-16); IMMATURE GRANULOCYTES 0.1 % (0-5); LYMPHOCYTES 43.6 % (15-50); MCH 30.2 pg (26.0-34.0); MCHC 33.2 g/dL (31.0-37.0); MEAN PLATELET VOLUME 10.4 fL (7.4-10.4); MONOCYTES 6.4 % (2-11); NEUTROPHILS 48.9 % (40-80); PLATELET COUNT 247 10x3/uL (130-400); RBC 4.54 10x6/uL (4.00-5.40); WBC 8.7 10x3/uL (4.8-10.8)
[2019-10-20 08:45] LABS: CALC OSMOLALITY 284 mosm/kg (275-300); CALCIUM 8.3 mg/dL (8.5-10.1); CARBON DIOXIDE 30.5 mmol/L (21.0-32.0); CHLORIDE - SERUM 105 mmol/L (98-107); CREATININE - SERUM 0.7 mg/dL (0.6-1.3); GLUCOSE 99 mg/dL (74-106); POTASSIUM - SERUM 3.9 mmol/L (3.5-5.1); SODIUM 141 mmol/L (136-145); UREA NITROGEN 23 mg/dL (7-18); eGFR NON AFRICAN AMERICAN 85 mL/min (90-120)
[2019-10-20 08:49] LABS: HELICOBACTER PYLORI IGG NEGATIVE (NEGATIVE)
[2019-10-20 08:49] LABS: APPEARANCE HAZY (CLEAR); BACTERIA FEW /hpf (NEGATIVE); BILIRUBIN NEGATIVE (NEGATIVE); COLOR YELLOW (YELLOW); EPITHELIAL CELLS OCC /hpf (0-5); GLUCOSE NEGATIVE (NEGATIVE); KETONE MODERATE mg/dL (NEGATIVE); MUCUS <1+ /lpf (NONE SEEN); NITRITE NEGATIVE (NEGATIVE); PROTEIN NEGATIVE (NEGATIVE); RED CELLS - URINE 0-5 /hpf (0-5); SPECIFIC GRAVITY 1.025 (1.005-1.020); UROBILINOGEN NORMAL (NORMAL); WHITE CELLS - URINE RARE /hpf (NEGATIVE)
[2019-10-20 08:54] LABS: ALBUMIN 3.4 g/dL (3.4-5.0); ALKALINE PHOSPHATASE 66 U/L (46-116); ALT (SGPT) 23 U/L (10-68); AMYLASE - SERUM 40 U/L (25-115); BILIRUBIN - TOTAL 0.56 mg/dL (0.2-1.3); LIPASE 118 U/L (73-393); PROTEIN - SERUM 6.7 g/dL (6.4-8.2); TROPONIN-I < 0.017 ng/mL (0.000-0.060)
[2019-10-20 12:24] VITALS: BP 172/92; Ht 162.6 cm; Wt 65.0 kg
--- NOTE | 2019-10-20 14:35 | NUR ---
OFF UNIT VIA WC FOR TEST.
[2019-10-20 17:40] LABS: CKMB 0.8 U/L (0.0-3.6); CREATINE KINASE 55 UL (21-215)
[2019-10-20 17:41] LABS: TROPONIN-I < 0.017 ng/mL (0.000-0.060)
--- NOTE | 2019-10-20 19:00 | NUR ---
PATIENT IS RESTING IN BED WITH EYES OPEN. NO S/S OF ACUTE DISTRESS. NO COMPLAINTS AT THIS TIME. PATIENT HAS NO IV. PATIENT HAS DENIED ANOTHER IV UNLESS NECESSARY. PATIENT IN ON TELEMETRY 127 SINUS TACH. CALL LIGHT IN PLACE. WILL CONTINUE TO MONITOR.
[2019-10-20 20:00] VITALS: BP 167/77
[2019-10-20 22:36] LABS: CREATINE KINASE 69 UL (21-215); TROPONIN-I < 0.017 ng/mL (0.000-0.060)
[2019-10-21] VITALS: BP 135/75
[2019-10-21 04:00] VITALS: BP 141/76
--- NOTE | 2019-10-21 05:38 | NUR ---
I have reviewed this patient and I concur with the Shift Assessment completed by the Licensed Practical Nurse today this shift.
[2019-10-21 07:07] LABS: BASOPHILS 0.4 % (0-2); EOSINOPHILS 1.1 % (0-7); HEMATOCRIT 37.8 % (36.0-48.0); HEMOGLOBIN 12.5 g/dL (12-16); IMMATURE GRANULOCYTES 0.1 % (0-5); LYMPHOCYTES 39.8 % (15-50); MCH 29.9 pg (26.0-34.0); MCHC 33.1 g/dL (31.0-37.0); MCV 90.4 fL (80.0-100.0); MEAN PLATELET VOLUME 10.6 fL (7.4-10.4); NEUTROPHILS 50.6 % (40-80); PLATELET COUNT 208 10x3/uL (130-400); RBC 4.18 10x6/uL (4.00-5.40); RDW 13.1 % (11.5-14.5); WBC 8.4 10x3/uL (4.8-10.8)
[2019-10-21 07:46] LABS: CALC OSMOLALITY 285 mosm/kg (275-300); CALCIUM 8.2 mg/dL (8.5-10.1); CHLORIDE - SERUM 110 mmol/L (98-107); CKMB 1.5 U/L (0.0-3.6); CREATINE KINASE 142 UL (21-215); CREATININE - SERUM 0.7 mg/dL (0.6-1.3); GLUCOSE 94 mg/dL (74-106); POTASSIUM - SERUM 3.3 mmol/L (3.5-5.1); SODIUM 143 mmol/L (136-145); TROPONIN-I < 0.017 ng/mL (0.000-0.060); UREA NITROGEN 15 mg/dL (7-18); eGFR NON AFRICAN AMERICAN 85 mL/min (90-120)
--- NOTE | 2019-10-21 07:54 | NUR ---
ALERT AND ORIENTED. LUNGS CLEAR BILATERALLY. HEART SOUNDS S1 AND S2 HEARD IN ALL GALO. BOWEL SOUNDS ACTIVE X 4. SKIN INTACT WITHOUT REDNESS. DENIES NEEDS. BED LOW. FALL PRECAUTIONS IN PLACE. CALL ALVES AND PERSONAL ITEMS IN REACH. WILL CONTINUE TO MONITOR.
[2019-10-21 10:22] VITALS: BP 132/60
--- NOTE | 2019-10-21 10:48 | NUR ---
PATIENT'S SON IN [place] ASKING TO TALK. SOON WALKED UP TO SON HE STATED "MY MOM IS IN ROOM 14. MY BROTHER HAS BEEN A NURSE FOR A LONG TIME. WE DONT WANT DR FARRAR. IF WE CAN'T GET ANOTHER DOCTOR THEN WE WANT TO LEAVE. IF WE CAN WE'LL STAY." AT WHICH POINT PATIENT CAME OUT IN [place] AND STATES "GET THIS HEART MONITOR OFF OF ME." CELESTE NOBLE AT [facility] NOTIFIED OF SITUATION AND GOING IN ROOM TO TALK TO PATIENT AND FAMILY.
--- NOTE | 2019-10-21 11:15 | NUR ---
TELEMETRY REMOVED PER PATIENT'S REQUEST AND RETURNED TO OCT AT MONITORS.
[2019-10-21] MEDS ORDERED: LINZESS290 MCG PO (12:05)
--- NOTE | 2019-10-21 13:00 | NUR ---
DRESSED AND WAITING DISCHARGE PAPERWORK. DEJA KULKARNI ACCOUNTING MACHINE OPERATOR, WORKING ON PAPERWORK. PATIENT AWARE.
--- NOTE | 2019-10-21 13:07 | MORECARE ---
CASE MANAGEMENT DISCHARGE SUMMARY PATIENT: STEPHANIE MALAVE UNIT: [id number] ADM DATE: 10/20/19 AGE: 84 : 36 SEX: F ROOM/BED: D.2214 AUTHOR: TRISHA MARIE PHYSICIAN: REFERRING PHYSICIAN: WILBUR FARRAR MD DATE OF SERVICE: 10/21/19 Discharge Plan Patient Name: STEPHANIE MALAVE [facility] [facility] 1935 Planned Disposition: Home or Self Care Anticipated Discharge Date: Discharge Date: Expected LOS: Initial Reviewer: [email or web address] Initial Review Date: 10/20/2019 Generated: 10/21/19 2:07 pm DCPIA - Discharge Planning Initial Assessment Updated by [email or web address]: Bety Ramirez on 10/21/19 1:06 pm * Is the patient Alert and Oriented? Yes * How many steps to enter\exit or inside your home? * PCP [facility] * Pharmacy [facility] [place] * Preadmission Environment Home with Family * ADLs Independent * Equipment None * List name and contact numbers for known caregivers / representatives who currently or will assist patient after discharge: MARIO MALAVE [phone] * Verbal permission to speak to the caregivers and representatives has been obtained from the patient. N/A * Community resources currently utilized None * Additional services required to return to the preadmission environment? No * Can the patient safely return to the preadmission environment? Yes * Has this patient been hospitalized within the prior 30 days at any hospital? No Patient Name: STEPHANIE MALAVE Page [id number] at 1307 All edits/amendments must be made on the electronic document DICTATION DATE: 10/21/19 1307 SANITATION LABORER: EDWARDO 10/21/19 1307 RPT#: [id number] DC DATE: STATUS: ADM IN [facility] [address] [place] [address] END OF REPORT
--- NOTE | 2019-10-21 13:41 | NUR ---
DISCHARGE EDUCATION PROVIDED BOTH WRITTEN AND VERBAL. VERBALIZED UNDERSTANDING. DENIES FURTHER QUESTIONS. NO IV TO REMOVE. PATIENT DISCHARGED HOME WITH ALL BELONGINGS WITH .
--- NOTE | 2019-10-22 18:17 | MORECARE ---
CASE MANAGEMENT DISCHARGE SUMMARY PATIENT: STEPHANIE MALAVE UNIT: [id number] ADM DATE: 10/20/19 AGE: 84 : 36 SEX: F ROOM/BED: D.2214 AUTHOR: FRANKDOC PHYSICIAN: REFERRING PHYSICIAN: WILBUR FARRAR MD DATE OF SERVICE: 10/22/19 Discharge Plan Patient Name: STEPHANIE MALAVE Facility: [facility]:[place] : 1935 Planned Disposition: Home or Self Care Anticipated Discharge Date: Discharge Date: 10/21/2019 Expected LOS: Initial Reviewer: [email or web address] Initial Review Date: 10/20/2019 Generated: 10/22/19 7:16 pm Comments DCP- Discharge Planning Updated by [email or web address]: Bety Ramirez on 10/21/19 12:[address] Patient Name: STEPHANIE MALAVE Admission Status: ER Accout number: [id number] Admission Date: 10-20-2019 : 1935 Admission Diagnosis: Attending: WILBUR FARRAR Current LOS: 1 Anticipated DC Date: Planned Disposition: Home or Self Care Primary Insurance: MEDICARE A & B Discharge Planning Comments: CM met with patient to complete initial dc planning assessment. CM educated patient on the CM role and verbal consent given by patient to complete assessment. Patient lives at home with her spouse who will be her local bulk driver home when she is discharged. At discharge patient plans to return home and feels this is a safe discharge. CM discussed availability of home health, rehab services, and medical equipment. Patient denied known discharge needs at this time. CM will continue to follow and will assist as needed with dc plans/needs. Vending Route Driver: Bety Ramirez DCPIA - Discharge Planning Initial Assessment Updated by [email or web address]: Bety Ramirez on 10/21/19 1:06 pm * Is the patient Alert and Oriented? Yes * How many steps to enter\exit or inside your home? * PCP D[facility]ORA * Pharmacy [facility] * Preadmission Environment Home with Family * ADLs Independent * Equipment None * List name and contact numbers for known caregivers / representatives who currently or will assist patient after discharge: MARIO MALAVE [phone] * Verbal permission to speak to the caregivers and representatives has been obtained from the patient. N/A * Community resources currently utilized None * Additional services required to return to the preadmission environment? No * Can the patient safely return to the preadmission environment? Yes * Has this patient been hospitalized within the prior 30 days at any hospital? No Last DP export: 10/21/19 12:07 p Patient Name: STEPHANIE MALAVE Page [id number] at 1817 All edits/amendments must be made on the electronic document DICTATION DATE: 10/22/191815 DEPLOYMENT ENGINEER: EDWARDO 10/22/191815 RPT#: [id number] DC DATE:10/21/19 STATUS: DIS IN [facility] [address] [place] [address] END OF REPORT
== END 2019-10-21 14:58 | disposition home or self-care (01) | DRG 392 ==
LOC: D.ER 07:46 → D.MS 10:11
PROVIDERS: Emergency Medicine; ADMIT Internal Medicine Nephrology; ATTEND Internal Medicine Nephrology
DX: K59.00 Constipation, unspecified (principal); K21.9 Gastro-esophageal reflux disease without esophagitis; I25.10 Atherosclerotic heart disease of native coronary artery without angina pectoris; I10 Essential (primary) hypertension; F32.9 Major depressive disorder, single episode, unspecified; E03.9 Hypothyroidism, unspecified